=== PATIENT | female | born 1960 | race Hispanic/Latino ===

== ENCOUNTER 2019-08-05 17:23 | Emergency (ER) | payer BC, OTHER ==
[2019-08-05 18:12] LABS: BASOPHILS % (AUTO) 0.3 % (0.0-5.0); LYMPHOCYTES % (AUTO) 20.1 % (21.0-51.0); MONOCYTES % (AUTO) 9.2 % (3.0-13.0); NEUTROPHILS % (AUTO) 68.1 % (40.0-77.0); PLATELET COUNT (AUTO) 82 K/uL (130-400); RED BLOOD CELL COUNT(AUTO) 2.03 MIL/uL (4.00-5.50); RED CELL DISTRIBUTION WIDTH 19.3 % (11.0-15.5)
[2019-08-05 18:27] LABS: INR 1.02 (0.85-1.15); PARTIAL THROMBOPLASTIN TIME 27.5 SEC (26.3-35.5)
[2019-08-05 18:34] LABS: CREATININE 6.7 mg/dL (0.5-1.5); POTASSIUM 3.2 mmol/L (3.5-5.1)
[2019-08-05 18:41] LABS: HEMATOCRIT 20.3 % (36-48); RETICULOCYTE % (AUTO) 6.27 % (0.42-2.23)
[2019-08-05 19:17] LABS: % IRON SATURATION 43.9 % (22-44)
[2019-08-05 19:31] LABS: ALBUMIN 2.7 g/dL (3.5-5.0); BILIRUBIN,TOTAL 0.4 mg/dL (0.2-1.0); TOTAL PROTEIN, SERUM 10.1 g/dL (6.0-8.3)
== END 2019-08-05 19:36 | disposition home or self-care (01) ==
LOC: EDH 17:23
DX: I12.9 Hypertensive chronic kidney disease with stage 1 through stage 4 chronic kidney disease, or unspecified chronic kidney disease (principal); N18.9 Chronic kidney disease, unspecified; D63.1 Anemia in chronic kidney disease; I10 Essential (primary) hypertension; Z90.49 Acquired absence of other specified parts of digestive tract
CPT/HCPCS: 36415; 80053; 82550; 82607; 82728; 84484; 85025; 85610; 85730; 86850; 86900; 86901; 93005